=== PATIENT | male | born 1965 | race Caucasian/White ===

== ENCOUNTER 2021-12-12 17:03 | Emergency (ER) | payer BC ==
[~2021-12-12] VITALS: Ht 170.2 cm; Wt 116.3 kg
--- NOTE | 2021-12-12 21:00 | RAD ---
CT LOWER LEFT EXTREMITY WITHOUT CONTRAST History: Reason: wound, left calf / Spl. Instructions: / History: Comparison: None. Technique: Noncontrast CT imaging was performed of the left lower extremity. Coronal and sagittal rec onstructions were performed. Exposure: One or more of the following individualized dose reduction techniques were utilized for thi s examination: 1. Automated exposure control 2. Adjustment of the mA and/or kV according to patient size 3. Use of iterative reconstruction technique. Findings: Left lower extremity subcutaneous edema. Left lateral lower extremity soft tissue wound with overlyin g skin thickening and irregularity. No loculated fluid collection to suggest abscess. Evaluation is d egraded without intravenous contrast. Mild tendinous structures are grossly intact. No acute fracture . No evidence of osteomyelitis. Impression: 1. Left lateral lower extremity cutaneous wound with diffuse subcutaneous edema. No loculated fluid collection to suggest abscess. Electronically signed by: Bharath Fletcher DO (12/12/2021 8:58 PM) [facility]
--- NOTE | 2021-12-12 21:13 | PHYS DOC ---
Past Medical History Additional Past Medical Histor: HTN- non-compliant (ALMA DELIA BHANDARI APRN) Past Surgical History: Other Additional Past Surgical Histo: VasectomyX2 (ALMA DELIA BHANDARI APRN) Smoking Status: Never Smoker Alcohol Use: Rarely (ALMA DELIA BHANDARI APRN) General Adult EDM: Chief Complaint: WOUND CHECK HPI: HPI: Patient is a 56 year old male who presents with wound on the outer, left leg. Patient states he has been dealing with multiple leg wounds since August but those have healed. Patient states that this wound has gotten worse. Patient states "I did not have insurance until just recently selectively been seen at urgent care". Patient states he has been prescribed multiple antibiotics to help with healing. Patient's denying pain at this time. Patient denies medical history but has not been seeing a regular primary care physician. (ALMA DELIA BHANDARI APRN) Review of Systems: Review of Systems: ROS At least 10 ROS systems have been reviewed and are negative except as documented in the HPI. General: Negative except as outlined in HPI above. Skin: Negative except as outlined in HPI above. HEENT: Negative except as outlined in HPI above. Neck: Negative except as outlined in HPI above. Respiratory: Negative except as outlined in HPI above.. Cardiovascular: Negative except as outlined in HPI above. Abdomen: Negative except as outlined in HPI above. : Negative except as outlined in HPI above. Back/MSK: Negative except as outlined in HPI above. Neuro: Negative except as outlined in HPI above. Psych: Negative except as outlined in HPI above. (ALMA DELIA BHANDARI APRN) Heart Score: C/O Chest Pain: No Risk Factors: Risk Factors: DM, Current or recent (<one month) smoker, HTN, HLP, family history of CAD, obesity. Risk Scores: Score 0 - 3: 2.5% MACE over next 6 weeks - Discharge Home Score 4 - 6: 20.3% MACE over next 6 weeks - Admit for Clinical Observation Score 7 - 10: 72.7% MACE over next 6 weeks - Early Invasive Strategies (ALMA DELIA HBANDARI APRN) Allergies: Allergies: Allergies Coded Allergies Type Severity Reaction Last Updated Verified erythromycin base Allergy Intermediate Unknown 12/12/21 Yes (ALMA DELIA BHANDARI APRN) Physical Exam: PE: Constitutional: Well developed, well nourished, no acute distress, non-toxic appearance. [] HENT: Normocephalic, atraumatic, bilateral external ears normal, oropharynx moist, no oral exudates, nose normal. [] Eyes: PERRLA, EOMI, conjunctiva normal, no discharge. [] Neck: Normal range of motion, no tenderness, supple, no stridor. [] Cardiovascular:Heart rate regular rhythm, no murmur [] Lungs & Thorax: Bilateral breath sounds clear to auscultation [] Abdomen: Bowel sounds normal, soft, no tenderness, no masses, no pulsatile masses. [] Skin: Red, swollen wound, lateral aspect , left leg Back: No tenderness, no CVA tenderness. [] Extremities: No tenderness, no cyanosis, no clubbing, ROM intact, no edema. [] Neurologic: Alert and oriented X 3, normal motor function, normal sensory function, no focal deficits noted. [] Psychologic: Affect normal, judgement normal, mood normal. [] (ALMA DELIA BHANDARI APRN) Current Patient Data: Vital Signs: Vital Signs Date Time Temp Pulse Resp B/P (MAP) Pulse Ox O2 Delivery O2 Flow Rate FiO2 12/12/21 17:28 98.5 79 18 203/126 (151) 96 Room Air 98.5 (ALMA DELIA BHANDARI APRN) EKG: EKG: [] (ALMA DELIA HBANDARI APRN) Radiology/Procedures: Radiology/Procedures: []CT LOWER LEFT EXTREMITY WITHOUT CONTRAST History: Reason: wound, left calf / Spl. Instructions: / History: Comparison: None. Technique: Noncontrast CT imaging was performed of the left lower extremity. Coronal and sagittal reconstructions were performed. Exposure: One or more of the following individualized dose reduction techniques were utilized for this examination: 1. Automated exposure control 2. Adjustment of the mA and/or kV according to patient size 3. Use of iterative reconstruction technique. Findings: Left lower extremity subcutaneous edema. Left lateral lower extremity soft tissue wound with overlying skin thickening and irregularity. No loculated fluid collection to suggest abscess. Evaluation is degraded without intravenous contrast. Mild tendinous structures are grossly intact. No acute fracture. No evidence of osteomyelitis. Impression: 1. Left lateral lower extremity cutaneous wound with diffuse subcutaneous edema. No loculated fluid collection to suggest abscess. Electronically signed by: Bharath Fletcher DO (12/12/2021 8:58 PM) [facility] (ALMA DELIA BHANDARI APRN) Course & Med Decision Making: Course & Med Decision Making Pertinent Labs and Imaging studies reviewed. (See chart for details) [] 56-year-old male presents with wound to outer part of left calf. Work-up in ER consist of wound culture, labs, CT of lower left extremity. All labs unremarkable. Patient's pain was treated in the emergency room. Patie nt is afebrile. Blood pressure is elevated but patient has not taken his blood pressure medicine today. Instructed patient to take his blood pressure medicine when he gets home. CT of lower extremity was unremarkable as well. Advised patient that he needs to follow-up with his PCP along with wound care for further management. Patient was given contact information for [facility]. Patient verbalizes discharge instructions. (ALMA DELIA BHANDARI APRN) Course & Med Decision Making Patients Care and treatment plan provided by ER mid-level Practitioner. I was available for consult. Patient's chart reviewed. (SUKHDEEP SINGER I DO) Dragon Disclaimer: Nehemias Disclaimer: This electronic medical record was generated, in whole or in part, using a voice recognition dictation system. (ALMA DELIA BHANDARI APRN) Departure Departure Impression: Primary Impression: Wound cellulitis Disposition: HOME / SELF CARE / HOMELESS Condition: STABLE Patient Instructions: Cellulitis, [id number] Additional Instructions: You were seen in the emergency room for wound care. All of your labs were unremarkable. CT of your lower leg was unremarkable. Sending you home with a prescription for antibiotics. Please make sure you take in full instructed. I want you to call wound care on Tuesday and make an appointment for further management. Ibuprofen and Tylenol at home for pain. Please take your blood pressure medicine when you return home. Return to emergency room with worsening symptoms or concerns. EMERGENCY DEPARTMENT GENERAL DISCHARGE INSTRUCTIONS Thank you for coming to [facility] Emergency Department (ED) today and trusting us with you care. We trust that you had a positive experience in our Emergency Department. If you wish to speak to the department management, you may call the Director at [phone]. YOUR FOLLOW UP INSTRUCTIONS ARE FOLLOWS: 1. Do you have a private Doctor? If you do not have a private doctor, please ask for a resource list of physicians or clinics that may be able to assist you with f ollow up care. 2. The Emergency Physicain has interpreted your x-rays. The X-Ray specialist will also review them. If there is a change in the findings, you will be notified in 48 hours when at all possible. 3. A lab test or culture has been done, your results will be reviewed and you will be notified if you need a change in treatment. ADDITIONAL INSTRUCTIONS AND INFORMATION: 1. Your care today has been supervised by a physician who is specially trained in emergency care. Many problems require more than one evaluation for a complete diagnosis and treatment. We recommend that you schedule your follow up appointment as recommended to ensure complete treatment of you illness or injury. If you are unable to obtain follow up care and continue to have a problem, or if your condition worsens, we recommend that you return to the ED. 2. We are not able to safely determine your condition over the phone nor are we able to give sound medical advice over the phone. For these safety reasons, if you call for medical advice we will ask you to come to the ED for further evaluation. 3. If you have any questions regarding these discharge instructions please call the ED at [phone]. SAFETY INFORMATION: In the interest of safety, wellness, and injury prevention; we encourage you to wear your sealbelt, if you smoke; quite smoking, and we encourage family to use a protect vicente helmet for bicycling and other sporting events that present an increased risk for head injury. IF YOUR SYMPTOMS WORSEN OR NEW SYMPTOMS DEVELOP, OR YOU HAVE CONCERNS ABOUT YOUR CONDITION; OR IF YOUR CONDITION WORSENS WHILE YOU ARE WAITING FOR YOUR FOLLOW UP APPOINTMENT; EITHER CONTACT YOUR PRIMARY CARE DOCTOR, THE PHYSICIAN WHOSE NAME AND NUMBER YOU WERE GIVEN, OR RETURN TO THE ED IMMEDIATELY. Scripts Cephalexin (CEPHALEXIN) 250 Mg/5 Ml Susp.recon 10 ML PO QID for 10 Days, #100 ML 0 Refills Prov: ALMA DELIA BHANDARI APRN 12/12/21 ALMA DELIA BHANDARI APRN Dec 12, 2021 21:13 SUKHDEEP SINGER I DO Dec 19, 2021 03:07
[2021-12-12 21:25] LABS: BASO # 0.1 x10^3/uL (0.0-0.2); BASO % 1 % (0-3); EOS # 0.5 x10^3/uL (0.0-0.7); EOS % 5 % (0-3); HEMATOCRIT 40.4 % (39.0-53.0); HEMOGLOBIN 13.8 g/dL (13.0-17.5); LYMPH # 1.9 x10^3/uL (1.0-4.8); LYMPH % 21 % (24-48); MEAN CORPUSCULAR HEMOGLOBIN 29 pg (25-35); MEAN CORPUSCULAR HGB CONC 34 g/dL (31-37); MEAN CORPUSCULAR VOLUME 84 fL (79-100); MONO % 11 % (0-9); NEUT # 5.8 x10^3/uL (1.8-7.7); NEUT % 63 % (31-73); PLATELET COUNT 187 x10^3/uL (140-400); RED BLOOD COUNT 4.81 x10^6/uL (4.30-5.70); RED CELL DISTRIBUTION WIDTH 13.6 % (11.5-14.5); WHITE BLOOD COUNT 9.3 x10^3/uL (4.0-11.0)
[2021-12-12 21:27] LABS: CALCIUM 8.1 mg/dL (8.5-10.1); CREATININE 1.1 mg/dL (0.7-1.3); GFR 69.5; POTASSIUM 3.6 mmol/L (3.5-5.1)
[2021-12-12 21:33] LABS: ALBUMIN 2.9 g/dL (3.4-5.0); ALBUMIN/GLOBULIN RATIO 0.6 (1.0-1.7); TOTAL BILIRUBIN 0.5 mg/dL (0.2-1.0); TOTAL PROTEIN 7.4 g/dL (6.4-8.2)
[2021-12-12 21:57] VITALS: BP 206/97
[2021-12-12] MEDS ORDERED: CEPH250S30 PO (22:23)
[2021-12-12] MEDS ORDERED: MORPHINE SULFATE 4 MG/ML INJ. IVP ONE (22:30)
== END 2021-12-12 21:46 | disposition home or self-care (01) ==
LOC: ER 17:03
DX: L03.116 Cellulitis of left lower limb (principal); I10 Essential (primary) hypertension; Z88.1 Allergy status to other antibiotic agents
CPT/HCPCS: 36415; 73700; 80053; 85025; 87075; 87186; 96374; 99285; J2270; 87077

== ENCOUNTER → 2021-12-23 | Outpatient (CLI) | payer BC ==
[2021-12-12 21:57] VITALS: BP 206/97
[~2021-12-23] MED LIST: CEPH250S30 PO
--- NOTE | 2021-12-23 07:50 | RAD ---
EXAM: Left lower extremity arterial Doppler sonogram with ankle-brachial index (CILFTON). HISTORY: Nonhealing wounds. Peripheral vascular disease. TECHNIQUE: Doppler sonographic evaluation of the left lower extremity was performed and pressure read ings were assessed. FINDINGS: Right brachial pressure: 154 mmHg Left brachial pressure: 164 mmHg Left ankle pressure: 174 mmHg Left CLIFTON: 1.1 There are normal triphasic waveforms and peak systolic velocities throughout the left lower extremity arteries. IMPRESSION: 1. Normal left ankle-brachial index. 2. No Doppler evidence of hemodynamically significant stenosis or occlusion involving the left lower extremity arteries. Electronically signed by: Enriqueta Tobias MD (12/23/2021 7:48 AM) [id number]
--- NOTE | 2021-12-23 07:50 | RAD ---
EXAM: Left lower extremity arterial Doppler sonogram with ankle-brachial index (CLIFTON). HISTORY: Nonhealing wounds. Peripheral vascular disease. TECHNIQUE: Doppler sonographic evaluation of the left lower extremity was performed and pressure read ings were assessed. FINDINGS: Right brachial pressure: 154 mmHg Left brachial pressure: 164 mmHg Left ankle pressure: 174 mmHg Left CLIFTON: 1.1 There are normal triphasic waveforms and peak systolic velocities throughout the left lower extremity arteries. IMPRESSION: 1. Normal left ankle-brachial index. 2. No Doppler evidence of hemodynamically significant stenosis or occlusion involving the left lower extremity arteries. Electronically signed by: Enriqueta Tobias MD (12/23/2021 7:48 AM) [id number]
== END ==
LOC: US 06:56
PROVIDERS: ATTEND Nurse Practitioner Family
DX: L97.818 Non-pressure chronic ulcer of other part of right lower leg with other specified severity (principal)
CPT/HCPCS: 93922; 93926